=== PATIENT | female | born 1940 | race Caucasian/White ===

== ENCOUNTER 2019-02-03 06:05 | Day surgery (SDC) | payer OTHER | END 2019-02-03 12:11 | disposition home or self-care (01) | LOC: AMB-ENDOS 06:05 | DX: C20 Malignant neoplasm of rectum (principal) ==

== ENCOUNTER 2019-05-30 06:50 | Inpatient (IN) | payer OTHER ==
[~2019-05-30] VITALS: Ht 30.5 cm; Wt 5.0 kg
[2019-05-30] MEDS ORDERED: ALTACE5 MG (06:55)
== END 2019-06-09 18:28 | disposition home or self-care (01) | DRG 330 ==
LOC: ER 06:50 → SURG 20:55 → SURH 20:55
PROVIDERS: ADMIT Colon & Rectal Surgery
PROC: BW21Y0Z Computerized Tomography (CT Scan) of Abdomen and Pelvis using Other Contrast, Unenhanced and Enhanced (ICD-10-PCS; 2019-05-30)
PROC: 02HV33Z Insertion of Infusion Device into Superior Vena Cava, Percutaneous Approach (ICD-10-PCS; 2019-05-31)
PROC: 3E0336Z Introduction of Nutritional Substance into Peripheral Vein, Percutaneous Approach (ICD-10-PCS; 2019-05-31)
PROC: 0J9C30Z Drainage of Pelvic Region Subcutaneous Tissue and Fascia with Drainage Device, Percutaneous Approach (ICD-10-PCS; 2019-06-05)
PROC: 0D1L074 Bypass Transverse Colon to Cutaneous with Autologous Tissue Substitute, Open Approach (ICD-10-PCS; principal; 2019-06-07 14:45)
DX: N82.3 Fistula of vagina to large intestine (principal); R18.8 Other ascites; C20 Malignant neoplasm of rectum; K61.1 Rectal abscess; D62 Acute posthemorrhagic anemia; B37.89 Other sites of candidiasis; K63.89 Other specified diseases of intestine; N20.0 Calculus of kidney; I10 Essential (primary) hypertension; E78.49 Other hyperlipidemia; Z85.038 Personal history of other malignant neoplasm of large intestine; Z08 Encounter for follow-up examination after completed treatment for malignant neoplasm; B96.1 Klebsiella pneumoniae [K. pneumoniae] as the cause of diseases classified elsewhere; E87.6 Hypokalemia; Z88.6 Allergy status to analgesic agent; Z88.2 Allergy status to sulfonamides; B96.29 Other Escherichia coli [E. coli] as the cause of diseases classified elsewhere

== ENCOUNTER 2021-02-07 06:56 | Day surgery (SDC) | payer OTHER ==
[~2021-02-07 06:56] MED LIST: ALTACE5 MG
== END 2021-02-07 12:10 | disposition home or self-care (01) ==
LOC: AMB-ENDOS 06:56
PROVIDERS: ATTEND Colon & Rectal Surgery
DX: K62.89 Other specified diseases of anus and rectum (principal); K52.89 Other specified noninfective gastroenteritis and colitis; K62.7 Radiation proctitis; Z20.822 Contact with and (suspected) exposure to COVID-19